=== PATIENT | female | born 1980 | race Caucasian/White ===

== ENCOUNTER → 2017-03-02 | Outpatient (CLI) | payer OTHER ==
--- NOTE | 2017-03-20 01:20 | ECWPNPC ---
PATIENT NAME: SOCORRO HERNÁNDEZ : 1980 GENDER: FEMALE VISIT DATE: 03/02/2017 DISCHARGE DATE: 03/02/17 1525 VISIT LOCKED DATE TIME: PHYSICIAN: PAULA RO RESOURCE: PAULA RO REASON FOR APPOINTMENT 1. NECK/BACK HISTORY OF PRESENT ILLNESS TODAY'S VISIT: NOTES: PT IS REFERRED BY DR ARMANDO MCGARRY FOR CHRONIC NECK AND LOW BACK PAIN. HAS BEEN SEEN IN THE PAST BY DR DON AND WAS OFFERED A CESB, AND HAS HAD TPI PER DR MCGARRY. HAS BEEN EXPERIENCING NECK PAIN OVERTHE LAST 5 YEARS. STATES WOKE SUDDENLY WITH NECK PAIN THAT RADIATES OVER BACK OF HEAD. HAS HX OF SCOLIOSIS SINCE AGE 13, HAD NO PT OR BRACE IN SCHOOL - HAS A BACK BRACE THAT WAS MADE SPECICALLY MADE FOR HER BUT DOES NOT WEAR IT IT LIMITS HER ABILITY TO FUNCTION. PAIN IS CONSTANT - ALWAYS A 6/10. FEELS BETTER WITH RECLINER WITH FEET UP. FEELS IF RANDOM NEEDLE JABS IN ARMS AND LEGS. HAS HAD EMG?NCS WITH DR MCGARRY. WAS TOLDBY DR MCGARRY THAT SHE HAS RSD OF THE HAND. HANDS L>R FEELS LIKE THEY ARE ON FIRE, WITH COLOR CHANGES, SWELLING AND TEMPERATURE CHANGES. HAND PAIN GOT VERY BAD 1 YEAR AGO. WAS TOLD BY A DR FARLEY SHE NEEEDED CTS AFTER EMG - NO SURGERY NEEDED. HAS DIFFICULTY WALKING LONG DISTANCES. HAS N/T IN ARCHES OF FEET. HAS BALANCE PROBLEMS X 1 YEAR AND HAS FALLEN. NOTES SENSE OF MUSCLE STRAIN - FEELS WEAK. BOWELS - DISTENSION, ALT TE/CONSTIPATION. BLADDER - EPS PF LOSS OF CONTROL, LEAKS. SAW [employer]STILL[employer]. IS CURRENTLY DOING PT FOR PRESSURE POINTS., WITH TENS, MASSAGE, HOT PACKS. . FALL RISK SCREENING: SCREENING :NO FALLS IN THE PAST YEAR PAIN SCREENING: PATIENT HAS A COMPLAINT OF ACUTE OR CHRONIC PAIN :YES CURRENT MEDICATIONS TAKING GABAPENTIN 300 MG CAPSULE 2 TABLET ORALLY THREE TIMES DAILY TAKING HYDROXYZINE HCL 50 MG TABLET 2 TABLET NEEDED ORALLY BID TAKING CELEXA 40 MG TABLET 1 TABLET ORALLY ONCE A DAY TAKING TRAZODONE HCL 150 MG TABLET 1 TABLET AT BEDTIME NEEDED ORALLY ONCE A DAY TAKING ZONISAMIDE 100 MG CAPSULE 1 CAPSULE ORALLY TWICE A DAY TAKING AMERGE 2.5 MG TABLET 1 TABLET NEEDED ONE TIME ORALLY ONCE A DAY TAKING IMITREX 100 MG TABLET 1 TABLET NEEDED ORALLY TWICE A DAY TAKING ROBAXIN-750 750 MG TABLET 1 TABLET ORALLY EVERY 4 HRS TAKING IMITREX 6 MG/0.5ML SOLUTION 0.5 ML NEEDED INJECTION TWICE A DAY TAKING TRAMADOL HCL 50 MG TABLET 1 TABLET NEEDED ORALLY EVERY 6 HRS TAKING ATIVAN 1 MG TABLET 1 TABLET AT BEDTIME NEEDED ORALLY ONCE A DAY NOT-TAKING AMBIEN 10 MG TABLET 1 TABLET AT BEDTIME NEEDED ORALLY ONCE A DAY MEDICATION LIST REVIEWED AND RECONCILED WITH THE PATIENT PAST MEDICAL HISTORY ANXIETY DEPRESSION CERVICAL AND LUMBAR DISC DEGENERATION SCOLIOSIS 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 MIGRAINE HYPERLIPIDEMIA 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 1DAUGHTER(S) - HEALTHY. MOM LUNG CANCER, DAD KIDNEY CANCER. SOCIAL HISTORY GENERAL: TOBACCO USE ARE YOU A:CURRENT SMOKER HOW MANY CIGARETTES A DAY DO YOU SMOKE?11-20 HOW SOON AFTER YOU WAKE UP DO YOU SMOKE YOUR FIRST CIGARETTE?WITHIN 5 MIN HOW OFTEN DO YOU SMOKE CIGARETTES?EVERY DAY PATIENT COUNSELED ON THE DANGERS OF TOBACCO USE AND URGED TO QUIT:01/28/2016 03/02/17 ARE YOU INTERESTED IN QUITTING?NOT READY TO QUIT COUNSELED THE PATIENT ON SMOKING EFFECTS, EDUCATION LMAEMOLP45/09/2016 LUNG CANCER SCREENING SMOKING STATUS:CURRENT SMOKER IS THE PATIENT BETWEEN THE AGE OF 54 AND 76?NO ALCOHOL SCREENING DID YOU HAVE A DRINK CONTAINING ALCOHOL IN THE PAST YEAR?NO POINTS0 INTERPRETATIONNEGATIVE RECREATIONAL DRUG USE DRUG USE?NO CAFFEINE CAFFEINE USE?YES 2 CUPS/DAY SEXUAL HX HAD SEX IN THE LAST 12 MONTHS (VAGINAL, ORAL, OR ANAL)?YES WITHMEN ONLY USE PROTECTION?NO HAVE YOU EVER HAD AN STD?NO OCCUPATION: UNEMPLOYED WORKING TOWARDS DISABILITY. DIET: REGULAR. EXERCISE: STAYS ACTIVE MUCH POSSIBLE. MARITAL STATUS: . JAIN NO JAIN BELIEFS THAT WOULD IMPACT HEALTH CARE. LANGUAGE ALGERIAN. ADVANCE DIRECTIVES HEALTH CARE PROXY?NO WOULD YOU LIKE MORE INFORMATION?NO DO YOU HAVE A DNR?NO WOULD YOU LIKE MORE INFORMATION?NO LIVING WILL?NO WOULD YOU LIKE MORE INFORMATION?NO POWER OF SPECIAL NEEDS CAREGIVER?NO TRAVEL OUTSIDE US: DENIES. DOMESTIC VIOLENCE NONE. HOSPITALIZATION/MAJOR DIAGNOSTIC PROCEDURE SURGERY RELATED REVIEW OF SYSTEMS REVIEWED BY: PROVIDER: . CONSTITUTIONAL: ANY CHANGE IN YOUR MEDICAL CONDITION? NO . ANXIETY HIGH ANZIETY - SEEING BH IN [place] . CHILLS NO . FEVER NO . INFECTION: DO YOU HAVE NEW INFECTIONS? NO . DO YOU HAVE HISTORY OF MRSA? NO . MUSCULOSKELETAL: ANY NEW PATTERNS OF PAIN OR NUMBNESS? YES PT REPORTS SHE IS EXPERIENCING SOME NEW NUMBNESS IN BOTH HANDS, AND IN BOTH LEGS/FEET . SYTEMIC LUPUS NO . GASTROENTEROLOGY: ANY NEW CHANGE IN BOWEL CONTROL? NO . BARRETTS ESOPHAGUS NO . CIRRHOSIS NO . HEPATITIS NO . LIVER FAILURE NO . ACID REFLUX NO . UNEXPLAINED WEIGHT LOSS NO . GENITOURINARY: ANY NEW CHANGE IN BLADDER CONTROL? NO . IS THERE A CHANCE YOU COULD BE ? NO . HEMATOLOGY/LYMPH: DO YOU TAKE ANY BLOOD THINNERS? (FOR EXAMPLE- COUMADIN, PLAVIX, AGGRENOX, PLATEL, PRADAXA, OR XARELTO) NO . WHEN WAS YOUR LAST DOSE? DATE: TIME: . LOW PLATELET COUNT NO . SICKLE CELL DISEASE NO . VON WILLIEBRANDS NO . FACTOR V LEIDEN NO . THALLASEMIA NO . ANEMIA NO . EASY BRUISING NO . NEUROLOGY: HAVE YOU FALLEN IN THE PAST 6 MONTHS? YES PT REPORTS SHE LOSES HER BALANCE AT TIMES, AND STUMBLES. &QUOT;MY FEET DON'T FOLLOW MY BRAIN&QUOT; &NBSP;. ANY NEW EXTREMITY NUMBNESS OR WEAKNESS? &NBSP;&NBSP; NO&NBSP;. HEAD INJURY &NBSP;&NBSP; NO&NBSP;. DEMENTIA &NBSP;&NBSP; NO&NBSP;. CEREBRAL PALSY &NBSP;&NBSP; NO&NBSP;. MULTIPLE SCLEROSIS &NBSP;&NBSP; NO&NBSP;. DIZZINESS &NBSP;&NBSP; NO&NBSP;. HEADACHE &NBSP;&NBSP; NO&NBSP;. STROKES &NBSP;&NBSP; NO&NBSP;. VERTIGO &NBSP;&NBSP; NO&NBSP;. CARDIOLOGY: DO YOU HAVE A PACEMAKER OR DEFIBRILLATOR? NO . ANGINA NO . HEART ATTACK NO . HEART SURGERY NO . CONGESTIVE HEART FAILURE/FLUID OVERLOAD NO . CHEST PAIN NO . HIGH BLOOD PRESSURE NO . IRREGULAR HEART BEAT NO . RESPIRATORY: HAVE YOU BEEN SICK IN THE PAST WEEK? NO . FEVER NO . FLU LIKE SYMPTOMS? NO . CPAP NO . BYPAP NO . ASTHMA NO . EMPHYSEMA NO . CHRONIC LUNG DISEASES NO . SHORTNESS OF BREATH ON EXERTION NO . COUGH NO . SNORING NO . INTEGUMENTARY: DO YOU HAVE ANY RASHES OR OPEN SORES? YES ON FEET FROM FOOT FUNGUS . ALLERGIC/IMMUNO: ARE YOU ALLERGIC TO SHELLFISH OR IV DYE? NO . ANY NEW ALLERGIES? NO . PSYCHIATRIC: DO YOU HAVE THOUGHTS OF HURTING YOURSELF OR SOMEONE ELSE? NO . ARE YOU ABUSED, NEGLECTED, OR IN AN UNSAFE ENVIRONMENT? NO . ENDOCRINOLOGY: ARE YOU DIABETIC? NO . THYROID DISORDER NO . OTHER: DO YOU NEED ANY PRESCRIPTIONS? NO . IF YES, PLEASE LIST: ____ . ANY NEW PROBLEMS WITH YOUR MEDICATIONS? NO . WHEN DID YOU LAST EAT? ____ . WHEN DID YOU LAST DRINK? ____ . WHAT DID YOU LAST DRINK? ____ . NAME OF PERSON DRIVING YOU HOME? ____ . DO YOU HAVE ANY OTHER QUESTIONS OR CONCERNS NO . PSYCHOLOGY: BECKS DEPRESSION INVENTORY DID NOT COMPLETE BECKS - DENIES SUICIDAL OR HOMICIDAL IDEATION . VITAL SIGNS WT 203 LBS, HT 5'3", BMI 35.96 INDEX, BP 130/77 MM HG, HR 79 /MIN, RR 16 /MIN, TEMP 98.4 F, OXYGEN SAT % 95%, REVIEWED BY: HERBERT. EXAMINATION GENERAL EXAMINATION: GENERAL APPEARANCE:OBESE. PSYCHALERT , ORIENTED X 3 , APPROPRIATE MOOD AND AFFECT , GOOD EYE CONTACT. HEENT:NORMOCEPHALIC, THYROMEGLY NOTED, NO LYPHADENOPATHY. LUNGS:CLEAR TO AUSCULTATION BILATERALLY, NO WHEEZES, RALES OR RHONCHI. HEART:II/ SYSTOLIC MURMUR, , HEART RATE REGULAR. MUSCULOSKELETAL:MUSCLE STRENGTH 4/5 LEFT UPPER EXTREMITY , 5/5 RIGHT UPPER ETREMITY. DIFFICULTY WITH FINE FINGER COORDINATION LEFT UPPER EXTREMITY. PAIN NOTED WITH RIGHT ROTATION OF SPINE, , TRIGGER POINTS AND TIGHT FIBROUS BANDS IDENTIFIED OVER CERVICAL PARASPINOUS MUSCLES AND ACROSS TRAPEZIUS AND LEFT SCAPULA, WELL ACROSS THE LUMBOSACRAL AXIS. POINT TENDERNESS OVER LUMBAR SPINOUS PROCESSES AND LEFT SIJ>RIGHT. CANE USED FOR SUPPORT AND BALANCE. GAIT ANTALGIC WITH LEFT HIP ELEVATED.. EXTREMITIES:ALLODYNIA LEFT HAND, PULSES 2 PLUS BILATERALLY, NO EDEMA. NEUROLOGIC EXAM:DTR'S 2+ BILATERAL UPPER AND LOWER EXTREMITIES. NO SENSORY CHANGED ELICITED TO LIGHT TOUCH IN BILATERAL LOWER EXTREMITIES - HYPERSENSATIVITY TO ALL TOUCH NOTED OVER LEFT UPPER EXTREMITY WITH ALLODYNIA TO LEFT HAND. DIAGNOSTIC TESTS REVIEWEDMRI CERVICAL SPINE COMPLETED ON 09/24/16 REVIEWED. MRI THORACIC SPINE COMPLETED 10/18/15 REVIEWED - DEMONSTRATES MIN APEX RIGHT SCOLIOSIS IN THE MID TO LOWER THORACIC SPINE. XRAY OF LUMBAR SPINE COMPLETED 02/08/15 REVIED WITH MILD LEFTWARD SCOLIOSIS OF LUMBAR SPINE AND DEGENERATIVE CHANGES PARTICULARLY AT L4-5 AND L5-S1. ASSESSMENTS CERVICAL SPINAL STENOSIS - M48.02 (PRIMARY) THORACOGENIC SCOLIOSIS, UNSPECIFIED SPINAL REGION - M41.30 TREATMENT CERVICAL SPINAL STENOSIS START TRAMADOL HCL TABLET, 50 MG, 1 TABLET NEEDED, ORALLY, EVERY 6 HRS PRN PAIN MDD=2, 30 DAY(S), 10, REFILLS 1 LAB: THYROID PROFILE CERVICAL EPIDURAL RIGHT NOTES: DO EXERCISES AND STRETCHES,CERVICAL EPIDURAL INJECTION MATERIAL WAS PRINTED,CERVICAL EPIDURAL INJECTION: YOUR EXPERIENCE MATERIAL WAS PRINTED. PROCEDURE CODES FA211 ESTABILISHED PATIENT [facility] CHARGE DISPOSITION & COMMUNICATION FOLLOW UP AFTER INJECTION (REASON: CHECK AUTH FOR CESB) ELECTRONICALLY SIGNED BY CRUZ COLE ON 03/19/2017 AT 08:59 AM EDT DISCLAIMER : THIS IS A VISIT SUMMARY EXTRACTED FROM THE [employer] CHART. IT IS NOT A COPY OF THE [employer] PROGRESS NOTE. MAXIMO
== END ==
LOC: M PAIN 13:20
PROVIDERS: ATTEND Nurse Practitioner Family
DX: M54.2 Cervicalgia (principal); M54.5 Low back pain; G89.29 Other chronic pain; M48.02 Spinal stenosis, cervical region; M41.30 Thoracogenic scoliosis, site unspecified; Z79.891 Long term (current) use of opiate analgesic; Z79.899 Other long term (current) drug therapy; F17.210 Nicotine dependence, cigarettes, uncomplicated; Z88.6 Allergy status to analgesic agent; Z88.8 Allergy status to other drugs, medicaments and biological substances

== ENCOUNTER → 2017-06-10 | Outpatient (CLI) | payer OTHER ==
--- NOTE | 2017-06-10 14:03 | REP ---
Partial cervical spine series: Single view. History: Cervical epidural. 19 seconds of fluoroscopy time is reported. Findings: A single fluoroscopically obtained last image hold spot radiograph of the cervical thoracic junction documents needle position and contrast injection associated with injection procedure. Signed by Dg Ho MD 06/10/2017 05:24 P
--- NOTE | 2017-06-11 01:19 | ECWPNPC ---
PATIENT NAME: SOCORRO HERNÁNDEZ : 1980 GENDER: FEMALE VISIT DATE: 06/10/2017 DISCHARGE DATE: 06/10/17 1108 VISIT LOCKED DATE TIME: PHYSICIAN: NATALIE BUENO RESOURCE: NATALIE BUENO REASON FOR APPOINTMENT 1. CE HISTORY OF PRESENT ILLNESS HISTORY OF PRESENT ILLNESS: PAIN THE PATIENT DESCRIBES THE PAIN... FALL RISK SCREENING: SCREENING :NO FALLS IN THE PAST YEAR CURRENT MEDICATIONS TAKING HYDROXYZINE HCL 50 MG TABLET 2 TABLET NEEDED ORALLY BID, NOTES: 06-09 TAKING CELEXA 40 MG TABLET 1 TABLET ORALLY ONCE A DAY, NOTES: 06-09-17899 TAKING TRAZODONE HCL 150 MG TABLET 1 TABLET AT BEDTIME NEEDED ORALLY ONCE A DAY, NOTES: 06-09-172099 TAKING ZONISAMIDE 100 MG CAPSULE 1 CAPSULE ORALLY TWICE A DAY, NOTES: 06-09-172099 TAKING AMERGE 2.5 MG TABLET 1 TABLET NEEDED ONE TIME ORALLY ONCE A DAY, NOTES: NOT LATELY TAKING IMITREX 100 MG TABLET 1 TABLET NEEDED ORALLY TWICE A DAY, NOTES: NOT LATELY TAKING ROBAXIN-750 750 MG TABLET 1 TABLET ORALLY EVERY 4 HRS, NOTES: NOT LATELY TAKING IMITREX 6 MG/0.5ML SOLUTION 0.5 ML NEEDED INJECTION TWICE A DAY, NOTES: NOT LATELY TAKING TRAMADOL HCL 50 MG TABLET 1 TABLET NEEDED ORALLY EVERY 6 HRS, NOTES: A COUPLE DAYS TAKING ATIVAN 1 MG TABLET 1 TABLET AT BEDTIME NEEDED ORALLY ONCE A DAY, NOTES: NOT LATELY TAKING GABAPENTIN 300 MG CAPSULE 2 TABLET ORALLY THREE TIMES DAILY, NOTES: 06-09-172099 NOT-TAKING TRAMADOL HCL 50 MG TABLET 1 TABLET NEEDED ORALLY EVERY 6 HRS PRN PAIN MDD=2 NOT-TAKING AMBIEN 10 MG TABLET 1 TABLET AT BEDTIME NEEDED ORALLY ONCE A DAY MEDICATION LIST REVIEWED AND RECONCILED WITH THE PATIENT PAST MEDICAL HISTORY ANXIETY DEPRESSION CERVICAL AND LUMBAR DISC DEGENERATION SCOLIOSIS 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 MIGRAINE HYPERLIPIDEMIA 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 FIBROMYALGIA ALLERGIES ADVIL: RASH, HEADACHE: ALLERGY RISPERDAL: ITCHING, LARGE BRUISES: ALLERGY FAMILY HISTORY FATHER: , ARTHRITIS RENAL CANCER, DIAGNOSED WITH CANCER MOTHER: , ARTHRITIS, HTN, HYPERCHOLESTEROLEMIA, SMALL CELL LUNG CANCER, DIAGNOSED WITH CANCER SIBLINGS: ALIVE, BROTHER HTN MATERNAL GRAND MOTHER: ALIVE, UTERINE CANCER 1 BROTHER(S) , 1 SISTER(S) . 1DAUGHTER(S) - HEALTHY. MOM LUNG CANCER, DAD KIDNEY CANCER. REVIEW OF SYSTEMS REVIEWED BY: PROVIDER: . CONSTITUTIONAL: ANY CHANGE IN YOUR MEDICAL CONDITION? NO . CHILLS NO . FEVER NO . INFECTION: DO YOU HAVE NEW INFECTIONS? NO . DO YOU HAVE HISTORY OF MRSA? NO . MUSCULOSKELETAL: ANY NEW PATTERNS OF PAIN OR NUMBNESS? NO . GASTROENTEROLOGY: ANY NEW CHANGE IN BOWEL CONTROL? NO . GENITOURINARY: ANY NEW CHANGE IN BLADDER CONTROL? NO . IS THERE A CHANCE YOU COULD BE ? NO . HEMATOLOGY/LYMPH: DO YOU TAKE ANY BLOOD THINNERS? (FOR EXAMPLE- COUMADIN, PLAVIX, AGGRENOX, PLATEL, PRADAXA, OR XARELTO) NO . WHEN WAS YOUR LAST DOSE? DATE: TIME: . NEUROLOGY: HAVE YOU FALLEN IN THE PAST 6 MONTHS? NO . ANY NEW EXTREMITY NUMBNESS OR WEAKNESS? NO . CARDIOLOGY: DO YOU HAVE A PACEMAKER OR DEFIBRILLATOR? NO . RESPIRATORY: HAVE YOU BEEN SICK IN THE PAST WEEK? NO . FEVER NO . FLU LIKE SYMPTOMS? NO . COUGH NO . INTEGUMENTARY: DO YOU HAVE ANY RASHES OR OPEN SORES? NO . ALLERGIC/IMMUNO: ARE YOU ALLERGIC TO SHELLFISH OR IV DYE? NO . ANY NEW ALLERGIES? NO . PSYCHIATRIC: DO YOU HAVE THOUGHTS OF HURTING YOURSELF OR SOMEONE ELSE? NO . ARE YOU ABUSED, NEGLECTED, OR IN AN UNSAFE ENVIRONMENT? NO . ENDOCRINOLOGY: ARE YOU DIABETIC? NO . OTHER: DO YOU NEED ANY PRESCRIPTIONS? NO . IF YES, PLEASE LIST: ____ . ANY NEW PROBLEMS WITH YOUR MEDICATIONS? NO . WHEN DID YOU LAST EAT? ____ . WHEN DID YOU LAST DRINK? ____ . WHAT DID YOU LAST DRINK? ____ . NAME OF PERSON DRIVING YOU HOME? ____ . DO YOU HAVE ANY OTHER QUESTIONS OR CONCERNS NO . VITAL SIGNS WT 200 LBS, HT 5'3", BMI 35.42 INDEX, BP 116/69 MM HG, HR 66 /MIN, RR 187 /MIN, TEMP 98.0 F, OXYGEN SAT % 95, REVIEWED BY: KG. ASSESSMENTS CERVICAL DISC DISORDER WITH RADICULOPATHY OF CERVICOTHORACIC REGION - M50.13 (PRIMARY) PROCEDURES PN CERVICAL EPIDURAL PRE PROCEDURE DIAGNOSIS CERVICAL DISC DISORDER WITH RADICULOPATHY POST PROCEDURE DIAGNOSIS CERVICAL DISC DISORDER WITH RADICULOPATHY PROCEDURE CERVICAL EPIDURAL STEROID INJECTION UNDER FLUOROSCOPIC GUIDANCE SURGEON DR. NATALIE BUENO ARCHITECTURAL SALES CONSULTANT NONE ANESTHESIA LOCAL PRE PROCEDURE NOTE THE PATIENT HAS A HISTORY OF CHRONIC CERVICAL PAIN. I EVALUATE THE PATIENT AND REVIEWED THE CHART. I WENT OVER THE RISKS, ALTERNATIVES, AND BENEFITS ASSOCIATED WITH THIS PROCEDURE. THE PATIENT WOULD LIKE TO PROCEED AND GIVE CONSENT TO PERFORMED THE PROCEDURE. THE PATIENT DENIES UNEXPLAINABLE WEIGHT LOSS, FEVER, CHILLS, OR NEW CHANGES IN URINARY OR BOWEL CONTROL DESCRIPTION OF PROCEDURE THE PATIENT WAS BROUGHT TO THE PROCEDURE ROOM AND PLACED IN THE PRONE POSITION. THE CERVICOTHORACIC AREA WAS CLEANED WITH BETADINE SOLUTION AND DRAPED ASEPTICALLY. THE PROCEDURE WAS DONE UNDER STERILE CONDITIONS. I CHECKED LATERALITY AND THE LEVEL WHERE THE PROCEDURE WAS GOING TO BE PERFORMED WITH THE PATIENT AND THE SUPPORTING STAFF AT THE MOMENT OF THE TIME OUT IN THE PROCEDURE ROOM. UNDER FLUOROSCOPIC GUIDANCE, THE TARGET WAS SELECTED AT THE INTERLAMINAR LEVEL OF C7-T1. LIDOCAINE WAS USED TO NUMB THE SKIN AND THE SUBCUTANEOUS TISSUE BELOW IT. EPIDURAL TUOHY NEEDLE 17-GAUGE WAS ADVANCED UNDER FLUOROSCOPIC GUIDANCE AND FOLLOWING PATIENT FEEDBACK UNTIL THE EPIDURAL SPACE WAS REACHED 6 CM DEEP INTO THE SKIN BY THE LOSS OF RESISTANCE TECHNIQUE. ISOVUE M DYE 30%, 0.25 ML, WAS INJECTED SHOWING ADEQUATE SPREAD OF THE DYE. THEN, A SOLUTION OF 3 ML OF NORMAL SALINE WITH DEPO-MEDROL 60 MG WAS INJECTED SLOWLY FOLLOWING PATIENT FEEDBACK. THERE WAS NO EVIDENCE OF BLOOD, PARESTHESIA OR CEREBROSPINAL FLUID DURING THE PROCEDURE. THE PATIENT WAS SENT TO THE RECOVERY ROOM. THE PATIENT WAS MOVING THE EXTREMITIES AND DOING WELL. THERE WAS NO COMPLICATION DURING THE PROCEDURE. FLUOROSCOPY TIME WAS 19 SECONDS POST PROCEDURE NOTE THE PATIENT WILL BE SEEN IN A FOLLOW UP IN THE NEXT FEW WEEKS. INSTRUCTIONS WERE GIVEN, QUESTIONS WERE ANSWERED, AND THE PATIENT EXPRESSED UNDERSTANDING AND AGREES WITH THE PLAN. I, CONCEPCION BERGMAN, DOCUMENTED THE ABOVE INFORMATION ACTING A SCRIBE FOR DR. BUENO. I HAVE REVIEWED THE ABOVE DOCUMENT, WRITTEN BY CONCEPCION DUONG AND I VERIFY THAT IT IS [facility]NOST[facility] FLUORO GUIDE SPINE INJECTION (PAIN)[id number] PROCEDURE CODES 08253 CERVICAL/THORACIC W/ IMAGING 6045F RADXPS IN END [id number] PXD DISPOSITION & COMMUNICATION FOLLOW UP 3 WEEKS ELECTRONICALLY SIGNED BY NATALIE BUENO MD ON 06/10/2017 AT 12:53 PM EDT DISCLAIMER : THIS IS A VISIT SUMMARY EXTRACTED FROM THE [employer] CHART. IT IS NOT A COPY OF THE [employer] PROGRESS NOTE. MAXIMO
== END ==
LOC: M PAIN 08:30
PROVIDERS: ATTEND Anesthesiology
DX: G89.29 Other chronic pain (principal); M50.13 Cervical disc disorder with radiculopathy, cervicothoracic region; Z79.891 Long term (current) use of opiate analgesic; Z79.899 Other long term (current) drug therapy; Z88.8 Allergy status to other drugs, medicaments and biological substances
CPT/HCPCS: 62321; J1030; Q9967

== ENCOUNTER → 2017-08-11 | Outpatient (CLI) | payer OTHER ==
--- NOTE | 2017-08-24 00:28 | ECWPNPC ---
PATIENT NAME: SOCORRO HERNÁNDEZ : 1980 GENDER: FEMALE VISIT DATE: 08/11/2017 DISCHARGE DATE: 08/11/17 1604 VISIT LOCKED DATE TIME: PHYSICIAN: PAULA RO RESOURCE: PAULA RO REASON FOR APPOINTMENT 1. POST PROCEDURE HISTORY OF PRESENT ILLNESS HISTORY OF PRESENT ILLNESS: PAIN THE PATIENT DESCRIBES THE PAIN... FALL RISK SCREENING: SCREENING :NO FALLS IN THE PAST YEAR TODAY'S VISIT: NOTES: S/P CESB COMPLETED ON 06/10/17. REPORTS HAD MINIMAL TO NO IMPROVEMENT IN PAIN AND FEELS PAIN HAS GOTTEN WORSE WITH RADIATING INTO RIGHT SHOULDER AND LEFT FOREARM AND HAND. RATES PAIN TDAY 7.5/10. . CURRENT MEDICATIONS TAKING HYDROXYZINE HCL 50 MG TABLET 2 TABLETS ORALLY BID TAKING CELEXA 40 MG TABLET 1 TABLET ORALLY ONCE A DAY TAKING TRAZODONE HCL 150 MG TABLET 1 TABLET AT BEDTIME NEEDED ORALLY ONCE A DAY TAKING ZONISAMIDE 100 MG CAPSULE 1 CAPSULE ORALLY TWICE A DAY TAKING AMERGE 2.5 MG TABLET 1 TABLET NEEDED ONE TIME ORALLY ONCE A DAY TAKING IMITREX 100 MG TABLET 1 TABLET NEEDED ORALLY TWICE A DAY TAKING IMITREX 6 MG/0.5ML SOLUTION 0.5 ML NEEDED INJECTION TWICE A DAY TAKING ATIVAN 1 MG TABLET 1 TAB ORALLY ONCE A DAY NEEDED TAKING GABAPENTIN 300 MG CAPSULE 2 TABLET ORALLY THREE TIMES DAILY TAKING TRAMADOL HCL 50 MG TABLET 1 TABLET NEEDED ORALLY EVERY 6 HRS MDD2 TAKING ZONISAMIDE 50 MG CAPSULE 1 CAPSULE ORALLY ONCE A DAY NOT-TAKING ROBAXIN-750 750 MG TABLET 1 TABLET ORALLY EVERY 4 HRS NOT-TAKING TRAMADOL HCL 50 MG TABLET 1 TABLET NEEDED ORALLY EVERY 6 HRS PRN PAIN MDD=2 NOT-TAKING AMBIEN 10 MG TABLET 1 TABLET AT BEDTIME NEEDED ORALLY ONCE A DAY MEDICATION LIST REVIEWED AND RECONCILED WITH THE PATIENT PAST MEDICAL HISTORY ANXIETY DEPRESSION CERVICAL AND LUMBAR DISC DEGENERATION SCOLIOSIS 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 MIGRAINE HYPERLIPIDEMIA 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 FIBROMYALGIA ALLERGIES ADVIL: RASH, HEADACHE: ALLERGY RISPERDAL: ITCHING, LARGE BRUISES: ALLERGY SOCIAL HISTORY GENERAL: TOBACCO USE COUNSELED THE PATIENT ON SMOKING EFFECTS, EDUCATION [id number]/09/2016 ARE YOU INTERESTED IN QUITTING?NOT READY TO QUIT ARE YOU A:CURRENT SMOKER HOW SOON AFTER YOU WAKE UP DO YOU SMOKE YOUR FIRST CIGARETTE?WITHIN 5 MIN HOW MANY CIGARETTES A DAY DO YOU SMOKE?11-20 HOW OFTEN DO YOU SMOKE CIGARETTES?EVERY DAY PATIENT COUNSELED ON THE DANGERS OF TOBACCO USE AND URGED TO QUIT:01/28/2016 03/02/17 LUNG CANCER SCREENING SMOKING STATUS:CURRENT SMOKER IS THE PATIENT BETWEEN THE AGE OF 54 AND 76?NO ALCOHOL SCREENING DID YOU HAVE A DRINK CONTAINING ALCOHOL IN THE PAST YEAR?NO POINTS0 INTERPRETATIONNEGATIVE RECREATIONAL DRUG USE DRUG USE?NO CAFFEINE CAFFEINE USE?YES 2 CUPS/DAY SEXUAL HX HAD SEX IN THE LAST 12 MONTHS (VAGINAL, ORAL, OR ANAL)?YES WITHMEN ONLY USE PROTECTION?NO HAVE YOU EVER HAD AN STD?NO OCCUPATION: UNEMPLOYED WORKING TOWARDS DISABILITY. DIET: REGULAR. EXERCISE: STAYS ACTIVE MUCH POSSIBLE. MARITAL STATUS: . JAINISM NO YARSANI BELIEFS THAT WOULD IMPACT HEALTH CARE. LANGUAGE OCCITAN. LEARNING BARRIERS / SPECIAL NEEDS BARRIERS TO LEARNING?NO HEARING IMPAIRED?NO VISION IMPAIRED?YES :CORRECTIVE LENSES COGNITIVELY IMPAIRED?NO READINESS TO LEARN?YES LEARNING PREFERENCES?NO LEARNING CAPABILITIES PRESENT?YES EMOTIONAL BARRIERS?NO SPECIAL DEVICES?YES :CANE JOSS HOUSE KEEPER NEEDED?NO PAIN CLINIC PFS, CLERGY, PUBLIC HEALTH REFERRALS PFS REFERRAL NEEDED?NO CLERGY REFERRAL NEEDED?NO PUBLIC HEALTH REFERRAL NEEDED?NO WAS THE PROVIDER NOTIFIED OF ANY PERTINENT INFO?NO HAS THE PATIENT BEEN EDUCATED REGARDING HIS/HER PLAN OF CARE?YES HAS THE PATIENT BEEN EDUCATED REGARDING PAIN, THE RISK FOR PAIN, THE IMPORTANCE OF EFFECTIVE PAIN MANAGEMENT, AND THE PAIN ASSESSMENT PROCESS?YES ADVANCE DIRECTIVES HEALTH CARE PROXY?NO WOULD YOU LIKE MORE INFORMATION?NO DO YOU HAVE A DNR?NO WOULD YOU LIKE MORE INFORMATION?NO LIVING WILL?NO WOULD YOU LIKE MORE INFORMATION?NO POWER OF STRIPPER MACHINE OPERATOR?NO WOULD YOU LIKE MORE INFORMATION?NO TRAVEL OUTSIDE US: DENIES. DOMESTIC VIOLENCE NONE. REVIEW OF SYSTEMS REVIEWED BY: PROVIDER: . CONSTITUTIONAL: ANY CHANGE IN YOUR MEDICAL CONDITION? NO . CHILLS NO . FEVER NO . INFECTION: DO YOU HAVE NEW INFECTIONS? NO . DO YOU HAVE HISTORY OF MRSA? NO . MUSCULOSKELETAL: ANY NEW PATTERNS OF PAIN OR NUMBNESS? NO . GASTROENTEROLOGY: ANY NEW CHANGE IN BOWEL CONTROL? NO . GENITOURINARY: ANY NEW CHANGE IN BLADDER CONTROL? NO . IS THERE A CHANCE YOU COULD BE ? NO . HEMATOLOGY/LYMPH: DO YOU TAKE ANY BLOOD THINNERS? (FOR EXAMPLE- COUMADIN, PLAVIX, AGGRENOX, PLATEL, PRADAXA, OR XARELTO) NO . WHEN WAS YOUR LAST DOSE? DATE: TIME: . NEUROLOGY: HAVE YOU FALLEN IN THE PAST 6 MONTHS? YES . ANY NEW EXTREMITY NUMBNESS OR WEAKNESS? NO . CARDIOLOGY: DO YOU HAVE A PACEMAKER OR DEFIBRILLATOR? NO . RESPIRATORY: HAVE YOU BEEN SICK IN THE PAST WEEK? NO . FEVER NO . FLU LIKE SYMPTOMS? NO . COUGH NO . INTEGUMENTARY: DO YOU HAVE ANY RASHES OR OPEN SORES? NO . ALLERGIC/IMMUNO: ARE YOU ALLERGIC TO SHELLFISH OR IV DYE? NO . ANY NEW ALLERGIES? NO . PSYCHIATRIC: DO YOU HAVE THOUGHTS OF HURTING YOURSELF OR SOMEONE ELSE? NO . ARE YOU ABUSED, NEGLECTED, OR IN AN UNSAFE ENVIRONMENT? NO . ENDOCRINOLOGY: ARE YOU DIABETIC? NO . OTHER: DO YOU NEED ANY PRESCRIPTIONS? YES . IF YES, PLEASE LIST: TRAMADOL AND GABAPENTIN . ANY NEW PROBLEMS WITH YOUR MEDICATIONS? NO . WHEN DID YOU LAST EAT? ____ . WHEN DID YOU LAST DRINK? ____ . WHAT DID YOU LAST DRINK? ____ . NAME OF PERSON DRIVING YOU HOME? ____ . DO YOU HAVE ANY OTHER QUESTIONS OR CONCERNS NO . PSYCHOLOGY: SLEEP DISTURBANCES OCC AWAKENED BY PAIN . UROLOGY: URINARY INCONTINENCE NEAR CONSTANT - DRIBBLES IN THE DAYTIME AND WETS AT NITE. WAS SEEN BY UROLOGY . VITAL SIGNS WT 209.8 LBS, HT 5'3", BMI 37.16 INDEX, BP 130/80 MM HG, HR 96 /MIN, RR 18 /MIN, TEMP 98.2 F, OXYGEN SAT % 95%, SAFE IN ENV? (Y/N) YES, NA INITIALS AR 15:01, REVIEWED BY: ASHLIE. EXAMINATION GENERAL EXAMINATION: GENERAL APPEARANCE:OBESE. PSYCHALERT , ORIENTED X 3 , APPROPRIATE MOOD AND AFFECT , GOOD EYE CONTACT. LUNGS:CLEAR TO AUSCULTATION BILATERALLY, NO WHEEZES, RALES OR RHONCHI. HEART:II/ SYSTOLIC MURMUR, , HEART RATE REGULAR. MUSCULOSKELETAL:MUSCLE STRENGTH 4/5 LEFT UPPER EXTREMITY , 5/5 RIGHT UPPER ETREMITY. DIFFICULTY WITH FINE FINGER COORDINATION LEFT UPPER EXTREMITY. TRIGGER POINTS AND TIGHT FIBROUS BANDS IDENTIFIED OVER CERVICAL PARASPINOUS MUSCLES AND ACROSS TRAPEZIUS AND LEFT SCAPULA, WELL ACROSS THE LUMBOSACRAL AXIS. POINT TENDERNESS OVER LUMBAR SPINOUS PROCESSES AND LEFT SIJ>RIGHT. CANE USED FOR SUPPORT AND BALANCE. GAIT ANTALGIC WITH LEFT HIP ELEVATED.. EXTREMITIES:ALLODYNIA LEFT HAND, PULSES 2 PLUS BILATERALLY, NO EDEMA. 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 TREATMENT CERVICAL DISC DISORDER WITH RADICULOPATHY OF CERVICOTHORACIC REGION REFILL TRAMADOL HCL TABLET, 50 MG, 1 TABLET NEEDED, ORALLY, EVERY 6 HRS MDD2, 30 DAY(S), 45, REFILLS 1 REFILL GABAPENTIN CAPSULE, 300 MG, 2 TABLET, ORALLY, THREE TIMES DAILY, 30 DAY(S), 180, REFILLS 5 [facility] RE[facility]ON:CERVICICAL DISC PROTRUSION/LEFT ARM WEAKNESS PROCEDURE CODES FA211 ESTABILISHED PATIENT [facility] CHARGE DISPOSITION & COMMUNICATION FOLLOW UP OCT (REASON: NECK PAIN) ELECTRONICALLY SIGNED BY CRUZ COLE ON 08/22/2017 AT 12:40 PM EST DISCLAIMER : THIS IS A VISIT SUMMARY EXTRACTED FROM THE [email or web address] CHART. IT IS NOT A COPY OF THE [email or web address] PROGRESS NOTE. MAXIMO
== END ==
LOC: M PAIN 14:45
PROVIDERS: ATTEND Nurse Practitioner Family
DX: G89.29 Other chronic pain (principal); M50.13 Cervical disc disorder with radiculopathy, cervicothoracic region; M48.02 Spinal stenosis, cervical region; M41.30 Thoracogenic scoliosis, site unspecified; F41.9 Anxiety disorder, unspecified; F32.9 Major depressive disorder, single episode, unspecified; F17.210 Nicotine dependence, cigarettes, uncomplicated; Z88.6 Allergy status to analgesic agent; Z88.8 Allergy status to other drugs, medicaments and biological substances; Z79.891 Long term (current) use of opiate analgesic; Z79.899 Other long term (current) drug therapy

== ENCOUNTER → 2017-09-23 | Outpatient (CLI) | payer OTHER | LOC: M PAIN 10:40 | DX: M50.13 Cervical disc disorder with radiculopathy, cervicothoracic region (principal); M48.02 Spinal stenosis, cervical region; M41.30 Thoracogenic scoliosis, site unspecified; F32.9 Major depressive disorder, single episode, unspecified; G43.909 Migraine, unspecified, not intractable, without status migrainosus; E78.5 Hyperlipidemia, unspecified; G25.81 Restless legs syndrome; M79.7 Fibromyalgia; F17.210 Nicotine dependence, cigarettes, uncomplicated; Z88.6 Allergy status to analgesic agent; Z88.8 Allergy status to other drugs, medicaments and biological substances; Z79.891 Long term (current) use of opiate analgesic; Z79.899 Other long term (current) drug therapy | CPT/HCPCS: G0463 ==

== ENCOUNTER → 2017-10-22 | Outpatient (CLI) | payer OTHER | LOC: M PAIN 13:45 | DX: M50.13 Cervical disc disorder with radiculopathy, cervicothoracic region (principal); M48.02 Spinal stenosis, cervical region; M41.30 Thoracogenic scoliosis, site unspecified; M79.1 Myalgia; F41.9 Anxiety disorder, unspecified; F32.9 Major depressive disorder, single episode, unspecified; G43.909 Migraine, unspecified, not intractable, without status migrainosus; E78.5 Hyperlipidemia, unspecified; G25.81 Restless legs syndrome; F17.210 Nicotine dependence, cigarettes, uncomplicated; Z79.899 Other long term (current) drug therapy; Z88.6 Allergy status to analgesic agent; Z88.8 Allergy status to other drugs, medicaments and biological substances | CPT/HCPCS: G0463 ==

== ENCOUNTER → 2017-11-19 | Outpatient (CLI) | payer OTHER | LOC: M PAIN 09:30 | DX: M50.13 Cervical disc disorder with radiculopathy, cervicothoracic region (principal); M48.02 Spinal stenosis, cervical region; M41.30 Thoracogenic scoliosis, site unspecified; M79.1 Myalgia; G43.909 Migraine, unspecified, not intractable, without status migrainosus; F17.210 Nicotine dependence, cigarettes, uncomplicated; F41.9 Anxiety disorder, unspecified; F32.9 Major depressive disorder, single episode, unspecified; Z79.891 Long term (current) use of opiate analgesic; Z79.899 Other long term (current) drug therapy; Z88.8 Allergy status to other drugs, medicaments and biological substances | CPT/HCPCS: G0463 ==

== ENCOUNTER → 2018-01-18 | Outpatient (CLI) | payer OTHER, MEDICARE | LOC: M PAIN 14:00 | DX: G89.29 Other chronic pain (principal); M50.13 Cervical disc disorder with radiculopathy, cervicothoracic region; M48.02 Spinal stenosis, cervical region; M41.30 Thoracogenic scoliosis, site unspecified; M79.1 Myalgia; E01.0 Iodine-deficiency related diffuse (endemic) goiter; F41.9 Anxiety disorder, unspecified; F32.9 Major depressive disorder, single episode, unspecified; M51.36 Other intervertebral disc degeneration, lumbar region; M50.20 Other cervical disc displacement, unspecified cervical region; R32 Unspecified urinary incontinence; G43.909 Migraine, unspecified, not intractable, without status migrainosus; E78.5 Hyperlipidemia, unspecified; F17.210 Nicotine dependence, cigarettes, uncomplicated; Z79.891 Long term (current) use of opiate analgesic; Z79.899 Other long term (current) drug therapy; Z88.6 Allergy status to analgesic agent; Z88.8 Allergy status to other drugs, medicaments and biological substances | CPT/HCPCS: G0463 ==

== ENCOUNTER → 2018-07-02 | Outpatient (CLI) | payer MEDICARE, OTHER | LOC: M PAIN 09:45 | DX: M50.13 Cervical disc disorder with radiculopathy, cervicothoracic region (principal); M51.26 Other intervertebral disc displacement, lumbar region; F41.9 Anxiety disorder, unspecified; F32.9 Major depressive disorder, single episode, unspecified; G43.909 Migraine, unspecified, not intractable, without status migrainosus; E78.5 Hyperlipidemia, unspecified; M79.7 Fibromyalgia; F17.210 Nicotine dependence, cigarettes, uncomplicated; Z79.899 Other long term (current) drug therapy; Z88.6 Allergy status to analgesic agent; Z88.8 Allergy status to other drugs, medicaments and biological substances | CPT/HCPCS: G0463 ==

== ENCOUNTER → 2018-12-27 | Outpatient (CLI) | payer MEDICARE, OTHER ==
--- NOTE | 2018-12-29 01:41 | ECWPNPC ---
PATIENT NAME: SOCORRO HERNÁNDEZ : 1980 GENDER: FEMALE VISIT DATE: 12/27/2018 DISCHARGE DATE: 12/27/18 0000 VISIT LOCKED DATE TIME: PHYSICIAN: ZEUS JEAN-BAPTISTE RESOURCE: ZEUS JEAN-BAPTISTE REASON FOR APPOINTMENT 1. NECK/BACK PAIN PT OF SW HISTORY OF PRESENT ILLNESS HISTORY OF PRESENT ILLNESS: PAIN THE PATIENT DESCRIBES THE PAINDURING THE LAST MONTH SEVERITY - PAIN SCORE OF9/10 38 YR OLD FEMALE HERE FOR F/U ON CERVICAL PAIN.SHE HAS A MIGRAINE AT PRESENT.SHE IS UNDER THE CARE OF FOR MIGRAINES. SHE SAYS SHE HAS HAD ANOTHER CERVICAL MRI 1 MONTH AGO IN [place]. PATIENT SAYS HER PAIN HAS INCREASED TODAY.ON ENTRANCE TO ROOM, PATIENT BECAME TEARFUL I EXPLAINED I AM HER NURSE PRACTITIONER.SHE WAS TEARFUL AND SAID " I DON'T WANT ANOTHER DR". AFTER I ASKED 3 TIMES AND HOW SHE WAS FEELING, HER ANSWERED AND PATIENT THEN EVENTAULY STARTED ENGAGING IN CONVERSATION WITH ME. SHE WAS WEARING HER SUNGLASSES THROUGHOUT THE CONSULATATION.SHE DISCLOSED THAT SHE HAS LOST 40 LBS SINCE LAST YEAR AND THAT SHE HAS TOLD " EVERYONE"- HER NEUROLOGIST. I ADVISE DPATIENTTO INFORM HER PCP, BUT SHE SAIS SHE DID NOT WANT TO SEE HER PCP BECAUSE HE IS " STUPID".I ADVISED HER ANY WEIGHT LOSS SHOULD BE FULLY INVESTIGATED.PATIENT SAYS SHE SEES HER NUEROSURGEON IN [place] ON A REGULAR BASIS.PATIENT SAYS SHE WANTS TO DISCARD HER NORCO- IT DOES NOT WORK FOR HER AND CAUSES HEADACHES. FALL RISK SCREENING: SCREENING :NO FALLS REPORTED IN THE LAST YEAR CURRENT MEDICATIONS TAKING CELEXA 40 MG TABLET 1 TABLET ORALLY ONCE A DAY TAKING TRAZODONE HCL 150 MG TABLET 1 TABLET AT BEDTIME NEEDED ORALLY ONCE A DAY TAKING ZONISAMIDE 100 MG CAPSULE 1 CAPSULE ORALLY TWICE A DAY TAKING AMERGE 2.5 MG TABLET 1 TABLET NEEDED ONE TIME ORALLY ONCE DAILY NEEDED TAKING IMITREX 100 MG TABLET 1 TABLET NEEDED ORALLY TWICE A DAY TAKING ATIVAN 1 MG TABLET 1 TAB ORALLY ONCE A DAY NEEDED TAKING OXYBUTYNIN CHLORIDE ER 15 MG TABLET EXTENDED RELEASE 24 HOUR 1 TABLET ORALLY ONCE A DAY TAKING PRAMIPEXOLE DIHYDROCHLORIDE 0.25 MG TABLET 2 TABLET BEFORE BEDTIME ORALLY BEFORE BEDTIME TAKING TRAMADOL HCL ER 300 MG TABLET EXTENDED RELEASE 24 HOUR 1 TABLET ORALLY ONCE A DAY FOR PAIN MDD=1 TAKING GABAPENTIN 300 MG CAPSULE 2 CAP ORALLY THREE TIMES DAILY TAKING OXYCODONE HCL 5 MG TABLET 1 TABLET NEEDED ORALLY EVERY 6 HRS PRN SEVERE PAIN MDD=2 NOT-TAKING HYDROXYZINE HCL 50 MG TABLET 2 TABLETS ORALLY BID DISCONTINUED IMITREX 6 MG/0.5ML SOLUTION 0.5 ML NEEDED INJECTION TWICE A DAY DISCONTINUED VERAPAMIL HCL 40 MG TABLET 1 TABLET ORALLY THREE TIMES A DAY DISCONTINUED PRAZOSIN HCL 1 MG CAPSULE 1 CAPSULE AT BEDTIME ORALLY ONCE A DAY MEDICATION LIST REVIEWED AND RECONCILED WITH THE PATIENT PAST MEDICAL HISTORY ANXIETY DEPRESSION CERVICAL AND LUMBAR DISC DEGENERATION SCOLIOSIS 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 1DAUGHTER(S) - HEALTHY. MOM LUNG CANCER, DAD KIDNEY CANCER. SOCIAL HISTORY GENERAL: TOBACCO USE ARE YOU A:CURRENT SMOKER ARE YOU INTERESTED IN QUITTING?THINKING ABOUT QUITTING TRYING TO CUT BACK COUNSELED THE PATIENT ON SMOKING CESSATION, EDUCATION [id number]/08/2019 HOW MANY CIGARETTES A DAY DO YOU SMOKE?11-20 HOW SOON AFTER YOU WAKE UP DO YOU SMOKE YOUR FIRST CIGARETTE?6-30 MIN HOW OFTEN DO YOU SMOKE CIGARETTES?EVERY DAY PATIENT COUNSELED ON THE DANGERS OF TOBACCO USE AND URGED TO QUIT:07/02/2018 LUNG CANCER SCREENING SMOKING STATUS:CURRENT SMOKER IS THE PATIENT BETWEEN THE AGE OF 54 AND 76?NO ALCOHOL SCREENING POINTS: 0, INTERPRETATION: NEGATIVE. RECREATIONAL DRUG USE DRUG USE?NO CAFFEINE CAFFEINE USE?YES 2 CUPS/DAY SEXUAL HX HAD SEX IN THE LAST 12 MONTHS (VAGINAL, ORAL, OR ANAL)?: YES, WITH: MEN ONLY, USE PROTECTION?: NO, HAVE YOU EVER HAD AN STD?: NO. FAITH [id number] [employer] LANGUAGE BULGARIAN. LEARNING BARRIERS / SPECIAL NEEDS BARRIERS TO LEARNING?NO HEARING IMPAIRED?NO VISION IMPAIRED?YES :CORRECTIVE LENSES COGNITIVELY IMPAIRED?NO READINESS TO LEARN?YES LEARNING PREFERENCES?NO LEARNING CAPABILITIES PRESENT?YES EMOTIONAL BARRIERS?NO SPECIAL DEVICES?YES :CANE FUR DRY CLEANER HAND NEEDED?NO DOMESTIC VIOLENCE DO YOU FEEL SAFE IN YOUR ENVIRONMENT?YES OCCUPATION: UNEMPLOYED WORKING TOWARDS DISABILITY. DIET: REGULAR. EXERCISE: STAYS ACTIVE MUCH POSSIBLE. MARITAL STATUS: . PAIN CLINIC PFS, CLERGY, PUBLIC HEALTH REFERRALS PFS REFERRAL NEEDED?NO CLERGY REFERRAL NEEDED?NO PUBLIC HEALTH REFERRAL NEEDED?NO WAS THE PROVIDER NOTIFIED OF ANY PERTINENT INFO?NO N/A HAS THE PATIENT BEEN EDUCATED REGARDING HIS/HER PLAN OF CARE?YES HAS THE PATIENT BEEN EDUCATED REGARDING PAIN, THE RISK FOR PAIN, THE IMPORTANCE OF EFFECTIVE PAIN MANAGEMENT, AND THE PAIN ASSESSMENT PROCESS?YES ADVANCE DIRECTIVE ADVANCE DIRECTIVE DISCUSSED WITH PATIENT:YES PT DECLINES INFORMATION ON HCP REVIEWED 12/21/17 1524 BVREVIEWED WITH PATIENT 07/02/18 1012 JS. HOSPITALIZATION/MAJOR DIAGNOSTIC PROCEDURE SURGERY RELATED CHILD REVIEW OF SYSTEMS REVIEWED BY: PROVIDER: ALEJANDRO . CONSTITUTIONAL: ANY CHANGE IN YOUR MEDICAL CONDITION? NO . CHILLS NO . FEVER NO . INFECTION: DO YOU HAVE NEW INFECTIONS? NOT SURE, FEELS LIKE CONSTANT SINUSUTIS, WORSENS WITH MENSES . DO YOU HAVE HISTORY OF MRSA? NO . MUSCULOSKELETAL: ANY NEW PATTERNS OF PAIN OR NUMBNESS? NO . GASTROENTEROLOGY: ANY NEW CHANGE IN BOWEL CONTROL? NO . GENITOURINARY: ANY NEW CHANGE IN BLADDER CONTROL? NO . IS THERE A CHANCE YOU COULD BE ? NO . HEMATOLOGY/LYMPH: DO YOU TAKE ANY BLOOD THINNERS? (FOR EXAMPLE- COUMADIN, PLAVIX, AGGRENOX, PLATEL, PRADAXA, OR XARELTO) NO . WHEN WAS YOUR LAST DOSE? DATE: TIME: . NEUROLOGY: HAVE YOU FALLEN IN THE PAST 12 MONTHS? YES, PRIOR TO LAST VISIT . ANY NEW EXTREMITY NUMBNESS OR WEAKNESS? NO . CARDIOLOGY: DO YOU HAVE A PACEMAKER OR DEFIBRILLATOR? NO . RESPIRATORY: HAVE YOU BEEN SICK IN THE PAST WEEK? NO . FEVER NO . FLU LIKE SYMPTOMS? NO . COUGH NO . INTEGUMENTARY: DO YOU HAVE ANY RASHES OR OPEN SORES? NO . ALLERGIC/IMMUNO: ARE YOU ALLERGIC TO IV DYE? NO . ANY NEW ALLERGIES? NO . PSYCHIATRIC: DO YOU HAVE THOUGHTS OF HURTING YOURSELF OR SOMEONE ELSE? NO . ARE YOU ABUSED, NEGLECTED, OR IN AN UNSAFE ENVIRONMENT? NO . ENDOCRINOLOGY: ARE YOU DIABETIC? NO . OTHER: DO YOU NEED ANY PRESCRIPTIONS? YES, PRAMAPAXOLE, OXYBUTYNIN, TRAMADOL . IF YES, PLEASE LIST: ____ . ANY NEW PROBLEMS WITH YOUR MEDICATIONS? NO . WHEN DID YOU LAST EAT? ____ . WHEN DID YOU LAST DRINK? ____ . WHAT DID YOU LAST DRINK? ____ . NAME OF PERSON DRIVING YOU HOME? ____ . DO YOU HAVE ANY OTHER QUESTIONS OR CONCERNS NO . VITAL SIGNS WT 184 LBS, HT 5'3", BMI 32.59 INDEX, BP 132/86 MM HG, HR 68 /MIN, RR 16 /MIN, TEMP 98.7 F, OXYGEN SAT % 96, REVIEWED BY: EM. EXAMINATION GENERAL EXAMINATION: GENERAL APPEARANCE: LOOKS WELL, WEARING SUNGLASSES. NECK: SCAR TO LEFTSIDE OF NECK NORMAL ALIGNMENT TENDER TO TOUCH ALONG POSTERIOR CERVICAL SPINE- C3-C4 TENDERALONG THE TRAPEZIUS. HEART:NO MURMURS, REGULAR RATE AND RHYTHM. 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 DISCUSSED DOING URINE TOX TODAY- PATIENT REFUSED IN THE PRESENCE OF RN. PATIENT STATED " I AM NOT DOING THAT, AND THAT ARLIN SAID I DO'T HAVE TO DO THAT". RN RUDI WAS PRESENT IN THE ROOM. I RESPONDED BY SAYING I WILL CHECK PREVIOUS PROVIDER'S NOTE. SPOKE WITH PAM ALLAN ABOUT THIS PATIENT REFUSING TO DO URINE TOXICOLOGY TEST TODAY.IVANA HARDY.- DONE BY RNX2 AT [facility]. PROCEDURE CODES FA211 ESTABILISHED PATIENT [facility] CHARGE DISPOSITION & COMMUNICATION ELECTRONICALLY SIGNED BY CHRIS NATHAN ON 12/28/2018 AT 08:23 AM EDT DISCLAIMER : THIS IS A VISIT SUMMARY EXTRACTED FROM THE [employer] CHART. IT IS NOT A COPY OF THE [employer] PROGRESS NOTE. MAXIMO
== END ==
LOC: M PAIN 13:30
PROVIDERS: ATTEND Nurse Practitioner Family
DX: M50.13 Cervical disc disorder with radiculopathy, cervicothoracic region (principal); Z86.59 Personal history of other mental and behavioral disorders; G43.909 Migraine, unspecified, not intractable, without status migrainosus; E78.5 Hyperlipidemia, unspecified; M79.7 Fibromyalgia; F17.210 Nicotine dependence, cigarettes, uncomplicated; Z88.6 Allergy status to analgesic agent; Z88.8 Allergy status to other drugs, medicaments and biological substances; Z79.899 Other long term (current) drug therapy

== ENCOUNTER → 2023-08-24 | Outpatient (REF) | payer MEDICARE ==
[2023-08-24 14:18] LABS: APPEARANCE, URINE HAZY (CLEAR); BACTERIA, URINE AUTO NEGATIVE (NEGATIVE); BILIRUBIN, URINE AUTO NEGATIVE (NEGATIVE); BLOOD, URINE BLOOD NEGATIVE (NEGATIVE); COLOR, URINE YELLOW (YELLOW); GLUCOSE, URINE (UA) AUTO NEGATIVE (NEGATIVE); KETONE, URINE AUTO NEGATIVE (NEGATIVE); LEUKOCYTE ESTERASE, URINE AUTO NEGATIVE (NEGATIVE); MUCUS, URINE SMALL (NEGATIVE); NITRITE, URINE AUTO NEGATIVE (NEGATIVE); PROTEIN, URINE AUTO NEGATIVE (NEGATIVE); RBC, URINE AUTO 0 /HPF (0-3); SPECIFIC GRAVITY URINE AUTO 1.009 (1.002-1.035); SQUAMOUS EPITHELIAL CELL UR AU 9 /HPF (0-6); UROBILINOGEN, URINE AUTO 0.2 mg/dL (0.0-2.0); WBC, URINE AUTO 0 /HPF (0-3)
== END ==
LOC: M LABSMT 11:02
PROVIDERS: ATTEND Specialist
DX: N32.81 Overactive bladder (principal); Z79.899 Other long term (current) drug therapy

== ENCOUNTER → 2023-12-16 | Outpatient (CLI) | payer MEDICARE ==
[~2023-12-16] MED LIST: BARIUM SULFATE 700 MG TABLET (E-Z-DISK) As Ordered ONE; E-Z-PAQUE 96% w/w SUSP 176GM BTL As Ordered ONE; VARIBAR NECTAR 40% w/v 240ML SUSP BTL As Ordered ONE; VARIBAR PUDDING 40% w/v 230ML TUBE As Ordered ONE
== END ==
LOC: M RAD 10:56
PROVIDERS: ATTEND Nurse Practitioner Family
DX: R13.10 Dysphagia, unspecified (principal)

== ENCOUNTER → 2024-04-15 | Outpatient (REF) | payer MEDICARE, MEDICAID ==
[2024-04-15 14:22] LABS: AMORPHOUS SEDIMENT SMALL (NEGATIVE); APPEARANCE, URINE CLOUDY (CLEAR); BACTERIA, URINE AUTO NEGATIVE (NEGATIVE); BILIRUBIN, URINE AUTO NEGATIVE (NEGATIVE); BLOOD, URINE BLOOD NEGATIVE (NEGATIVE); COLOR, URINE YELLOW (YELLOW); GLUCOSE, URINE (UA) AUTO NEGATIVE (NEGATIVE); KETONE, URINE AUTO NEGATIVE (NEGATIVE); LEUKOCYTE ESTERASE, URINE AUTO NEGATIVE (NEGATIVE); NITRITE, URINE AUTO NEGATIVE (NEGATIVE); PROTEIN, URINE AUTO NEGATIVE (NEGATIVE); RBC, URINE AUTO 1 /HPF (0-3); SPECIFIC GRAVITY URINE AUTO 1.017 (1.002-1.035); SQUAMOUS EPITHELIAL CELL UR AU 1 /HPF (0-6); WBC, URINE AUTO 0 /HPF (0-3)
== END ==
LOC: M SMT 12:57
PROVIDERS: ATTEND Specialist
DX: N32.81 Overactive bladder (principal); N39.41 Urge incontinence

== ENCOUNTER → 2024-08-16 | Outpatient (REF) | payer MEDICARE ==
[2024-08-16 14:00] LABS: APPEARANCE, URINE CLEAR (CLEAR); BACTERIA, URINE AUTO NEGATIVE (NEGATIVE); BILIRUBIN, URINE AUTO NEGATIVE (NEGATIVE); BLOOD, URINE BLOOD NEGATIVE (NEGATIVE); COLOR, URINE YELLOW (YELLOW); GLUCOSE, URINE (UA) AUTO NEGATIVE (NEGATIVE); KETONE, URINE AUTO NEGATIVE (NEGATIVE); LEUKOCYTE ESTERASE, URINE AUTO NEGATIVE (NEGATIVE); NITRITE, URINE AUTO NEGATIVE (NEGATIVE); PROTEIN, URINE AUTO NEGATIVE (NEGATIVE); RBC, URINE AUTO 0 /HPF (0-3); SPECIFIC GRAVITY URINE AUTO 1.016 (1.002-1.035); SQUAMOUS EPITHELIAL CELL UR AU 3 /HPF (0-6); WBC, URINE AUTO 0 /HPF (0-3)
== END ==
LOC: M SMT 12:38
PROVIDERS: ATTEND Specialist
DX: N32.81 Overactive bladder (principal); Z79.899 Other long term (current) drug therapy